=== PATIENT | male | born 1955 | race Two or more races ===

== ENCOUNTER 2018-12-30 19:29 | Emergency (ER) | payer BC, OTHER ==
[2018-12-30 20:10] VITALS: BP 211/114
--- NOTE | 2018-12-30 21:13 | RADIOLOGY REPORT (SQ) ---
EXAM DESCRIPTION: US SCROTUM COMPLETED DATE/TME: 12/30/2018 00:00 CLINICAL HISTORY: 63 years, Male, TESTICULAR PAIN COMPARISON: None. TECHNIQUE: 2-D grayscale images of the scrotum were obtained. Doppler and spectral analysis were utilized. LIMITATIONS: None. FINDINGS: Right testicle measures 3.0 x 2.9 x 1.9 cm in size. It demonstrates normal echogenicity and normal low resistance arterial waveforms. Right epididymal head measures 0.9 x 1.4 x 1.2 cm in size,. There is a moderately sized right hydrocele which demonstrates low-level internal echoes. Left testicle measures 3.8 x 3.0 x 2.4 cm in size. 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 There is also likely tubular ectasia of the rete testis. Otherwise, the left testicle demonstrates normal echogenicity and normal low resistance arterial waveforms. The left epididymal head appears normal, measuring 1.0 x 1.0 x 1.0 cm in size. IMPRESSION: No acute intratesticular abnormality. Moderately sized mildly complex right hydrocele. 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 Suggest follow-up scrotal ultrasound in 6 months to document continued stability. copyright 2010 [employer]- All Rights Reserved
[2018-12-30 21:42] LABS: APPEARANCE,URINE CLEAR; BILIRUBIN,URINE NEGATIVE (NEGATIVE); COLOR,URINE YELLOW; GLUCOSE, URINE NEGATIVE (NEGATIVE); KETONES,URINE NEGATIVE (NEGATIVE); LEUKOCYTE ESTERASE,URINE NEGATIVE (NEGATIVE); NITRITE,URINE NEGATIVE (NEGATIVE); PROTEIN,URINE NEGATIVE (NEGATIVE); URINE SPECIFIC GRAVITY 1.015; UROBILINOGEN,URINE NEGATIVE mg/dL (<2.0)
--- NOTE | 2018-12-30 22:47 | ER Document Report ---
ED General - General Chief Complaint: Testicular Pain Stated Complaint: PELVIC PAIN Time Seen by Provider: 12/30/18 21:01 Primary Care Provider: [facility] [NO LOCAL MD] - [facility] - Follow up as needed TRAVEL OUTSIDE OF THE [place] IN LAST 30 DAYS: No - HPI Notes: Patient is a 63-year-old male who presents to the emergency department for evaluation. He complains of pain in his left lower back, radiating around to his groin intermittently, since Saturday. He states he noted having pain while moving something. It was worsened by movement, resting to make it better. 2 days ago he developed pain in his left testicle. 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 He states it does not necessarily feel similar. He denies any fevers or chills. No nausea or vomiting. No hematuria or dysuria. No penile discharge. - Related Data Allergies/Adverse Reactions: No Known Allergies Allergy (Unverified 12/30/18 20:10) Past Medical History - General Information source: Patient - Social History Smoking Status: Current Some Day Smoker Family History: Reviewed & Not Pertinent Patient has suicidal ideation: No Patient has homicidal ideation: No Renal/ Medical History: Denies: Hx Peritoneal Dialysis Review of Systems - Review of Systems Constitutional: No symptoms reported EENT: No symptoms reported Cardiovascular: No symptoms reported Respiratory: No symptoms reported Gastrointestinal: No symptoms reported Genitourinary: No symptoms reported Male Genitourinary: See HPI Musculoskeletal: See HPI Skin: No symptoms reported Neurological/Psychological: No symptoms reported Physical Exam - Vital signs Vitals: Temp Pulse Resp BP Pulse Ox 98.8 F 74 16 211/114 H 98 12/30/18 20:06 12/30/18 20:06 12/30/18 20:06 12/30/18 20:06 12/30/18 20:06 - Notes Notes: Vital signs reviewed, please refer to chart. Head is normocephalic, atraumatic. Pupils equal round, reactive to light. Neck is supple without meningismus. Heart is regular rate and rhythm. Lungs are clear to auscultation bilaterally. Abdomen is soft, nontender, normoactive bowel sounds throughout. Examination of the genitals yields a moderate amount of edema of the scrotum, consistent with possible hydrocele. No significant tenderness over either testicle. No Mejia Clapper deformity noted. Intact cremasteric reflex. No penile discharge or open sores. Extremities without cyanosis, clubbing. Posterior calves are nontender. Peripheral pulses are equal. Examination of the spine is no midline tenderness or step-off. He has paraspinal musculature tenderness on the left from L3-L5 and over the SI joint. Negative straight leg raise bilaterally. Skin is warm and dry. Patient is awake, alert, oriented x3. Cranial nerves II - XII are grossly intact without focal neurological deficits. Strength is plus 5 out of 5 bilateral lower extremities. Sensation is intact. Reflexes symmetrical. Intact [id number], rapid altering movements, [id number]. Course - Re-evaluation Re-evalutation: 12/30/18 22:44 Patient presents emergency department for evaluation. He had testicular ultrasound performed, as well as urinalysis. Testicular ultrasound revealed a cyst that requires follow-up, as well as a hydrocele. Urinalysis showed only few red blood cells per high-power field, no other significant abnormalities. I do strongly suspect that this is a musculoskeletal pain. Patient was notified about the testicular cyst and the need for repeat ultrasound. They voiced understanding to this. I will then send him a muscle relaxers. [facility]. We also discussed his blood pressure. He has no signs of endorgan damage at this time. He has no chest pain or difficulty breathing. His peripheral pulses are equal. I explained to him that he needs to establish care with primary care, would likely require treatment for this elevated blood pressure. He voiced understanding to this and was discharged. - Vital Signs Vital signs: Temp Pulse Resp BP Pulse Ox 98.8 F 74 16 211/114 H 98 12/30/18 20:06 12/30/18 20:06 12/30/18 20:06 12/30/18 20:06 12/30/18 20:06 - Laboratory Laboratory results interpreted by me: 12/30/18 21:03 Urine Blood SMALL H - Diagnostic Test Radiology reviewed: Reports reviewed Radiology results interpreted by me: 12/30/18 22:44 Scrotum Ultrasound 12/30/18 00:00 IMPRESSION: No acute intratesticular abnormality. Moderately sized mildly complex right hydrocele. 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 Suggest follow-up scrotal ultrasound in 6 months to document continued stability. copyright 2011 [employer]- All Rights Reserved Discharge - Discharge Clinical Impression: Left flank pain, Left testicular cyst, Left testicular pain, Elevated blood pressure reading Condition: Stable Disposition: HOME, SELF-CARE Instructions: Flank Pain ([facility]) Additional Instructions: Take medication as prescribed. Your blood pressure was markedly elevated here today. This should be addressed by primary care provider. There was a cyst noted on your left testicle. He should have another ultrasound of your scrotum in 6 months to make sure that it is unchanged. Return to the emergency department with worsening or new concerning symptoms of any sort. Prescriptions: Methocarbamol [Robaxin-750] 750 mg PO TID PRN #21 tablet PRN Reason: For Pain Scale 4-5 Forms: Elevated Blood Pressure Referrals: MARCELLONO [Primary Care Provider] - Follow up as needed [facility] [NO LOCAL MD] - Follow up as needed
== END 2018-12-30 23:02 | disposition home or self-care (01) ==
LOC: ER 19:29
DX: N44.2 Benign cyst of testis (principal); N50.812 Left testicular pain; R03.0 Elevated blood-pressure reading, without diagnosis of hypertension; R10.30 Lower abdominal pain, unspecified; M54.5 Low back pain; F17.200 Nicotine dependence, unspecified, uncomplicated
CPT/HCPCS: 76870; 81001; 93976; 99284

== ENCOUNTER → 2019-02-23 | Outpatient (CLI) | payer OTHER ==
[2019-02-23 09:41] LABS: ABSOLUTE EOSINOPHILS # (AUTO) 0.2 10^3/uL (0.0-0.6); ABSOLUTE LYMPHOCYTES (AUTO) 1.6 10^3/uL (0.5-4.7); ABSOLUTE MONOCYTES (AUTO) 0.4 10^3/uL (0.1-1.4); ABSOLUTE NEUT (AUTO) 2.7 10^3/uL (1.7-8.2); BASOPHILS % (AUTO) 0.9 % (0-2); EOSINOPHILS % (AUTO) 4.9 % (0-6); HEMATOCRIT 41.4 % (37.9-51.0); HEMOGLOBIN 14.6 g/dL (13.5-17.0); LYMPHOCYTES % (AUTO) 32.8 % (13-45); MEAN CORPUSCULAR HEMOGLOBIN 32.3 pg (27.0-33.4); MEAN CORPUSCULAR HGB CONC 35.2 g/dL (32.0-36.0); MEAN CORPUSCULAR VOLUME 92 fl (80-97); MONOCYTES % (AUTO) 8.1 % (3-13); PLATELET COUNT 206 10^3/uL (150-450); RED BLOOD COUNT 4.51 10^6/uL (4.35-5.55); RED CELL DISTRIBUTION WIDTH 12.2 % (11.5-14.0); SEGMENTED NEUTROPHILS % (AUTO) 53.3 % (42-78); TOTAL CELLS COUNTED % (AUTO) 100 %
[2019-02-23 09:57] LABS: ALANINE AMINOTRANSFERASE 42 U/L (21-72); ALBUMIN 4.6 g/dL (3.5-5.0); ALKALINE PHOSPHATASE 56 U/L (38-126); ANION GAP 8 (5-19); ASPARTATE AMINO TRANSFERASE 33 U/L (17-59); BILIRUBIN,DIRECT 0.2 mg/dL (0.0-0.4); BILIRUBIN,TOTAL 0.8 mg/dL (0.2-1.3); BLOOD UREA NITROGEN 18 mg/dL (7-20); CALCIUM 9.9 mg/dL (8.4-10.2); CARBON DIOXIDE 28 mmol/L (22-30); CHLORIDE 105 mmol/L (98-107); CHOLESTEROL 199.23 mg/dL (0-200); GLUCOSE 96 mg/dL (75-110); TOTAL PROTEIN 7.5 g/dL (6.3-8.2); TRIGLYCERIDES 168 mg/dL (<150)
[2019-02-23 10:07] LABS: POTASSIUM 4.6 mmol/L (3.6-5.0); VLDL CHOLESTEROL 33.6 mg/dL (10-31)
[2019-02-23 10:08] LABS: DIRECT LDL 134 mg/dL (<100)
== END ==
LOC: CCC 07:53
DX: Z00.00 Encounter for general adult medical examination without abnormal findings (principal); I10 Essential (primary) hypertension
CPT/HCPCS: 36415; 80053; 80061; 83036; 85025